=== PATIENT | female | born 1995 ===

== ENCOUNTER 2017-04-29 21:58 | Inpatient (IN) ==
[2017-04-29] MEDS ORDERED: FAMOTIDINE 20 MG/2 ML VIAL IV ONE (22:21)
[2017-04-29] MEDS ORDERED: ceFAZolin 2,000 MG in PREMIX 1 EACH IV ONE (22:21)
[2017-04-29] MEDS ORDERED: CITRIC ACID/SODIUM CITRATE 30 ML UDCUP PO ONE (22:21)
[2017-04-29] MEDS ORDERED: OXYTOCIN/LR 20 UNIT/1,000 ML BAG IV PRN (22:24)
[2017-04-29] MEDS: LACTATED RINGERS 1,000 ML IV SCH (22:30)
[2017-04-29 23:00] LABS: Basophils % 0.2 % (0.0-0.8); Eosinophils % 0.2 % (0.00-10.9); Hematocrit 34.2 VOL% (35.7-47.0); Hemoglobin 11.4 GM/DL (12.0-16.0); Immature Granulocytes % 0.6 %; Immature Granulocytes Absolute 0.08 #; Lymphocytes # 2.9 10*3/uL (1.4-4.0); Lymphocytes % 22.5 % (21.3-54.2); Mean Corpuscular HGB Conc 33.3 GM/DL (32-36); Mean Corpuscular Hemoglobin 29 PG (27-34); Mean Corpuscular Volume 87.7 FL (87-102); Mean Platelet Volume 9.9 FL (9.6-12.0); Monocytes # 0.8 10*3/uL (0.11-0.8); Monocytes % 6.5 % (1.7-12.7); Neutrophils # 8.9 10*3/uL (1.4-7.4); Platelet Count 204 T/CUMM (130-400); Red Cell Distribution Width 14.7 % (9.3-17.3); White Blood Count 12.7 T/CUMM (4-12)
[2017-04-29 23:15] LABS: Apearance,Urine CLEAR (Clear); Bacteria,Urine Occasional /HPF (Few); Bilirubin,Urine Negative (Negative); Blood, Urine Small mg/dL (Negative); Glucose,Urine (UA) Negative (Negative); Ketones,Urine 20 mg/dL (Negative); Mucus,Urine Moderate /LPF (Occasional); Nitrite,Urine Negative (Negative); Protein,Urine 30 MG/DL; RBC,Urine 37 /HPF (0-4); Squamous Epithelial Cell,Urine Occasional /HPF (0-10); Urine Color Yellow (Yellow); Urine Specific Gravity 1.016 (1.001-1.035); Urine Urobilinogen < 2.0 EU/DL (0.2-1.0); WBC,Urine 2 /HPF (0-6)
[2017-04-29 23:18] LABS: INR 0.9; PT Patient Result 9.7 SECS; Partial Thromboplastin Time 26.7 SECS (0-40)
[2017-04-29 23:26] LABS: Albumin 2.7 G/DL (3.4-5.0); Bilirubin,Total 0.5 MG/DL (0.2-1.0); Calcium 8.5 MG/DL (8.5-10.1); Potassium 3.9 MMOL/L (3.5-5.1); Total Protein 6.5 G/DL (6.4-8.3)
[2017-04-30] MEDS ORDERED: ONDANSETRON 4 MG/2 ML VIAL IV PRN (00:29)
[2017-04-30] MEDS ORDERED: SIMETHICONE CHEW 80 MG TABLET PO PRN (00:29)
[2017-04-30] MEDS ORDERED: ACETAMINOPHEN 325 MG TABLET PO PRN (00:29)
[2017-04-30] MEDS ORDERED: RHO(D) IMMUNE GLOBULIN 300 MCG SYRINGE IM ONE (00:29)
[2017-04-30] MEDS ORDERED: OXYTOCIN/LR 20 UNIT/1,000 ML BAG IV ONE (00:29)
[2017-04-30] MEDS ORDERED: MAGNESIUM HYDROXIDE SUSP 30 ML UDCUP PO PRN (00:29)
[2017-04-30] MEDS ORDERED: fentaNYL 100 MCG/2 ML VIAL ONE (00:55)
[2017-04-30] MEDS ORDERED: PROPOFOL 200 MG/20 ML VIAL IV ONE (00:55)
[2017-04-30] MEDS ORDERED: LIDOCAINE MPF 2% /EPI 20 ML VIAL ONE (00:55)
[2017-04-30] MEDS ORDERED: MIDAZOLAM 2 MG/2 ML VIAL ONE (00:55)
[2017-04-30] MEDS ORDERED: MORPHINE 10 MG/10 ML VIAL ONE (00:55)
[2017-04-30] MEDS: MAGNESIUM SULF DRIP 40 GM/1,000 ML ML IV SCH ×2 (01:35→18:16)
[2017-04-30] MEDS ORDERED: HYDROmorphone 2 MG/1 ML VIAL IV PRN (03:10)
[2017-04-30] MEDS ORDERED: diphenhydrAMINE 50 MG/1 ML VIAL IV PRN (03:56)
[2017-04-30] MEDS ORDERED: ceFAZolin 1,000 MG in SYRINGE 1 EACH IV SCH ×2 (07:45→23:00)
[2017-04-30] MEDS: LACTATED RINGERS 1,000 ML IV SCH ×2 (13:42→13:54)
[2017-04-30] MEDS ORDERED: SODIUM CHLORIDE 0.9% 100 ML IV ONE (13:45)
[2017-04-30] MEDS: DOCUSATE SODIUM 100 MG CAPSULE PO SCH ×2 (13:55→22:35)
[2017-04-30] MEDS: MULTIVITAMIN (PRENATAL) TABLET PO SCH (13:55)
[2017-05-01 06:21] LABS: Basophils % 0.2 % (0.0-0.8); Eosinophils # 0.1 10*3/uL (0.0-0.87); Eosinophils % 0.5 % (0.00-10.9); Hematocrit 32.3 VOL% (35.7-47.0); Hemoglobin 10.6 GM/DL (12.0-16.0); Immature Granulocytes % 0.5 %; Immature Granulocytes Absolute 0.05 #; Lymphocytes # 2.6 10*3/uL (1.4-4.0); Lymphocytes % 24.3 % (21.3-54.2); Mean Corpuscular HGB Conc 32.8 GM/DL (32-36); Mean Corpuscular Hemoglobin 29 PG (27-34); Mean Corpuscular Volume 89.7 FL (87-102); Mean Platelet Volume 9.9 FL (9.6-12.0); Monocytes # 0.8 10*3/uL (0.11-0.8); Monocytes % 7.7 % (1.7-12.7); Neutrophils # 7.2 10*3/uL (1.4-7.4); Neutrophils % 66.8 % (38.7-73.9); Platelet Count 178 T/CUMM (130-400); Red Cell Distribution Width 14.7 % (9.3-17.3); White Blood Count 10.8 T/CUMM (4-12)
[2017-05-01] MEDS: DOCUSATE SODIUM 100 MG CAPSULE PO SCH ×2 (08:36→21:40)
[2017-05-01] MEDS: MULTIVITAMIN (PRENATAL) TABLET PO SCH (08:36)
[2017-05-01] MEDS: IBUPROFEN 800 MG TABLET PO PRN (21:39)
[2017-05-02] MEDS: DOCUSATE SODIUM 100 MG CAPSULE PO SCH (08:51)
[2017-05-02] MEDS: MULTIVITAMIN (PRENATAL) TABLET PO SCH (08:51)
[2017-05-02] MEDS: IBUPROFEN 800 MG TABLET PO PRN (08:53)
[2017-05-02] MEDS ORDERED: INFLUENZA VIRUS VACCINE 0.5 ML SYRINGE IM ONE (09:51)
[2017-05-02] MEDS ORDERED: DIPH/TET/ACEL PERT BOOSTER VACCINE 0.5 ML VIAL IM ONE (09:52)
[2017-05-02 11:34] VITALS: BP 143/89
== END 2017-05-02 13:25 | disposition home or self-care (01) | DRG 540 ==
LOC: N.LDOUT 21:58 → N.LD 22:01 → N.OB 05-01 01:49
PROVIDERS: ADMIT Obstetrics & Gynecology; ATTEND Obstetrics & Gynecology
PROC: LDCSECT (ICD-10-PCS; 2017-04-29 23:30)

== ENCOUNTER 2020-10-07 22:33 | Inpatient (IN) ==
[2020-10-08 01:30] LABS: Albumin 2.3 G/DL (3.4-5.0); Calcium 7.8 MG/DL (8.5-10.1); Osmolality,Calculated 274.7 MOS/KG (273-304); Potassium 3.7 MMOL/L (3.5-5.1); Total Protein 7.4 G/DL (6.4-8.2)
[2020-10-08 01:37] LABS: Basophils % 0.4 % (0.0-0.8); Eosinophils % 0.2 % (0.00-10.9); Hematocrit 32.6 VOL% (35.7-47.0); Hemoglobin 9.4 GM/DL (12.0-16.0); Immature Granulocytes % 0.6 %; Immature Granulocytes Absolute 0.03 #; Lymphocytes # 1.6 10*3/uL (1.4-4.0); Lymphocytes % 34.1 % (21.3-54.2); Mean Corpuscular HGB Conc 28.8 GM/DL (32-36); Mean Corpuscular Volume 94.2 FL (87-102); Mean Platelet Volume 9.7 FL (9.6-12.0); Monocytes % 8.6 % (1.7-12.7); NRBC # 0.02 10*3/uL; Neutrophils % 56.1 % (38.7-73.9); Platelet Count 272 T/CUMM (130-400); Red Blood Count 3.46 MC/CUMM (3.8-5.5); Red Cell Distribution Width 26.8 % (9.3-17.3); White Blood Count 4.6 T/CUMM (4-12)
[2020-10-08 01:56] LABS: INR 1.1; PT Patient Result 12.4 SECS (10.5-12.0)
[2020-10-08] MEDS ORDERED: LACTULOSE 20 GM/30 ML UDCUP PO STA (03:43)
[2020-10-08] MEDS ORDERED: diphenhydrAMINE CAP 25 MG CAPSULE PO PRN (04:09)
[2020-10-08] MEDS ORDERED: MORPHINE 2 MG/1 ML SYRINGE IV PRN (04:09)
[2020-10-08] MEDS ORDERED: GLUCAGON 1 MG VIAL IM PRN (04:09)
[2020-10-08] MEDS ORDERED: ONDANSETRON 4 MG/2 ML VIAL IV PRN (04:09)
[2020-10-08] MEDS ORDERED: ZALEPLON 5 MG CAPSULE PO PRN (04:09)
[2020-10-08] MEDS ORDERED: ALUMINUM/MAGNES/SIMETH MAX STR 30 ML UDCUP PO PRN (04:09)
[2020-10-08] MEDS ORDERED: CALCIUM CARBONATE CHEW 500 MG TABLET PO PRN (04:09)
[2020-10-08] MEDS ORDERED: DOCUSATE SODIUM 100 MG CAPSULE PO PRN (04:09)
[2020-10-08] MEDS ORDERED: guaiFENesin/DM ER 600-30 MG TABLET PO PRN (04:09)
[2020-10-08] MEDS ORDERED: hydrALAZINE 20 MG/1 ML VIAL IV PRN (04:09)
[2020-10-08] MEDS ORDERED: ACETAMINOPHEN 325 MG TABLET PO PRN (04:09)
[2020-10-08] MEDS ORDERED: DEXTROSE 50% 25 GM/50 ML VIAL IV PRN (04:09)
[2020-10-08] MEDS ORDERED: NICOTINE 21 MG/24 HR PATCH TRANSDERM PRN (04:09)
[2020-10-08] MEDS: ENOXAPARIN 40 MG/0.4 ML SYRINGE SUBCUT SCH (04:46)
[2020-10-08] MEDS: LEVOFLOXACIN INJ 750 MG/150 ML PREMIX IV SCH (07:31)
[2020-10-08] MEDS ORDERED: FUROSEMIDE 100 MG/10 ML VIAL IV SCH (08:00)
[2020-10-08] MEDS: carvediloL 3.125 MG TABLET PO SCH ×2 (09:12→21:39)
[2020-10-08] MEDS: PANTOPRAZOLE 40 MG TABLET PO SCH (09:12)
[2020-10-08] MEDS: FUROSEMIDE 40 MG/4 ML VIAL IV SCH ×2 (09:13→16:16)
[2020-10-08] MEDS: VALSARTAN 80 MG TABLET PO SCH (11:56)
[2020-10-08] MEDS ORDERED: LORazepam 2 MG/1 ML VIAL IV PRN (17:01)
[2020-10-08] MEDS ORDERED: DICYCLOMINE 10 MG CAPSULE PO PRN (17:01)
[2020-10-08] MEDS ORDERED: HydrOXYzine PAMOATE 25 MG CAPSULE PO PRN (17:10)
[2020-10-08] MEDS: chlordiazePOXIDE 25 MG CAPSULE PO SCH (17:38)
[2020-10-08 18:06] LABS: Folate 4.76 NG/ML (5.38-24.0)
[2020-10-08] MEDS: SPIRONOLACTONE 25 MG TABLET PO SCH (21:39)
[2020-10-08] MEDS: LACTULOSE 20 GM/30 ML UDCUP PO SCH (21:39)
[2020-10-08] MEDS: THIAMINE 100 MG TABLET PO SCH (21:39)
[2020-10-09] MEDS: chlordiazePOXIDE 25 MG CAPSULE PO SCH ×5 (00:13→17:48)
[2020-10-09 05:23] LABS: Basophils % 0.4 % (0.0-0.8); Eosinophils % 0.2 % (0.00-10.9); Hemoglobin 9.5 GM/DL (12.0-16.0); Immature Granulocytes % 0.4 %; Immature Granulocytes Absolute 0.02 #; Lymphocytes # 1.2 10*3/uL (1.4-4.0); Lymphocytes % 23.5 % (21.3-54.2); Mean Corpuscular HGB Conc 29.7 GM/DL (32-36); Mean Corpuscular Volume 91.7 FL (87-102); Mean Platelet Volume 9.1 FL (9.6-12.0); Monocytes % 7.3 % (1.7-12.7); Neutrophils % 68.2 % (38.7-73.9); Platelet Count 246 T/CUMM (130-400); Red Blood Count 3.49 MC/CUMM (3.8-5.5); Red Cell Distribution Width 26.9 % (9.3-17.3); White Blood Count 4.9 T/CUMM (4-12)
[2020-10-09] MEDS: LEVOFLOXACIN INJ 750 MG/150 ML PREMIX IV SCH (05:45)
[2020-10-09] MEDS: ENOXAPARIN 40 MG/0.4 ML SYRINGE SUBCUT SCH (05:45)
[2020-10-09 05:49] LABS: Calcium 7.2 MG/DL (8.5-10.1); Osmolality,Calculated 272.8 MOS/KG (273-304); Potassium 3.5 MMOL/L (3.5-5.1)
[2020-10-09 05:52] LABS: Albumin 1.7 G/DL (3.4-5.0); Bilirubin,Direct 1.07 MG/DL (0.0-0.20); Bilirubin,Indirect 0.5 MG/DL (0.0-1.0); Bilirubin,Total 1.6 MG/DL (0.20-1.00); Total Protein 5.7 G/DL (6.4-8.2)
[2020-10-09 05:55] LABS: Hypochromasia 1+; Platelet Estimate Adequate
[2020-10-09 06:32] LABS: Hepatitis B Core IgM Quant 0.08 Index; Hepatitis B Surface Ag Quant < 0.10 Index; Hepatitis B Surface Ag Result Non-Reactive (NonReactive); Hepatitis C Virus Ab Quant 0.12 Index; Hepatitis C Virus Ab Result Non-Reactive (NonReactive)
[2020-10-09] MEDS ORDERED: TISSUE ADHESIVE 1 EACH APPLICATOR TOP ONE (08:54)
[2020-10-09] MEDS: PANTOPRAZOLE 40 MG TABLET PO SCH (09:44)
[2020-10-09] MEDS: THIAMINE 100 MG TABLET PO SCH ×2 (09:44→20:40)
[2020-10-09] MEDS: SPIRONOLACTONE 25 MG TABLET PO SCH ×2 (09:44→20:40)
[2020-10-09] MEDS: LACTULOSE 20 GM/30 ML UDCUP PO SCH ×3 (09:44→20:39)
[2020-10-09] MEDS: FOLIC ACID 1 MG TABLET PO SCH (09:45)
[2020-10-09] MEDS: FUROSEMIDE 40 MG/4 ML VIAL IV SCH ×2 (09:45→15:17)
[2020-10-09] MEDS: carvediloL 3.125 MG TABLET PO SCH ×2 (09:45→20:40)
[2020-10-09] MEDS: VALSARTAN 80 MG TABLET PO SCH (09:45)
[2020-10-09 10:54] LABS: Total Protein,Peritoneal Fluid 3.6 G/DL
[2020-10-09 11:26] LABS: Neutrophils,Peritoneal Fluid 48 %
[2020-10-09 11:30] LABS: RBC,Peritoneal Fluid 193 T/CUMM
[2020-10-09] MEDS: SILVER SULFADIAZINE 1% CREAM 25 GM TUBE TOP SCH (17:20)
[2020-10-10] MEDS: chlordiazePOXIDE 25 MG CAPSULE PO SCH ×2 (01:19→10:23)
[2020-10-10] MEDS: ENOXAPARIN 40 MG/0.4 ML SYRINGE SUBCUT SCH (04:13)
[2020-10-10] MEDS: LEVOFLOXACIN INJ 750 MG/150 ML PREMIX IV SCH (05:06)
[2020-10-10] MEDS: FUROSEMIDE 40 MG/4 ML VIAL IV SCH ×2 (07:16→17:13)
[2020-10-10 07:20] LABS: Albumin 1.5 G/DL (3.4-5.0); Bilirubin,Total 1.2 MG/DL (0.20-1.00); Calcium 6.9 MG/DL (8.5-10.1); Potassium 3.2 MMOL/L (3.5-5.1); Total Protein 5.1 G/DL (6.4-8.2)
[2020-10-10 08:26] LABS: Hematocrit 32.3 VOL% (35.7-47.0)
[2020-10-10 08:27] LABS: Hemoglobin 9.5 GM/DL (12.0-16.0)
[2020-10-10 09:00] LABS: % Iron Saturation 24.5 % (18-50); Ferritin 47.5 ng/ml (8-252); Thyroid Stimulating Hormone 1.1 uIU/ml (0.358-3.74)
[2020-10-10 09:01] LABS: Folate 6.1 NG/ML (5.38-24.0)
[2020-10-10] MEDS: PANTOPRAZOLE 40 MG TABLET PO SCH (09:23)
[2020-10-10] MEDS: FOLIC ACID 1 MG TABLET PO SCH (09:23)
[2020-10-10] MEDS: carvediloL 3.125 MG TABLET PO SCH (09:23)
[2020-10-10] MEDS: THIAMINE 100 MG TABLET PO SCH (09:23)
[2020-10-10] MEDS: POTASSIUM CHLORIDE 20 MEQ TABLET PO PRN ×2 (09:24→13:32)
[2020-10-10] MEDS: SPIRONOLACTONE 25 MG TABLET PO SCH (09:24)
[2020-10-10] MEDS: LACTULOSE 20 GM/30 ML UDCUP PO SCH ×2 (09:24→10:16)
[2020-10-10] MEDS: VALSARTAN 80 MG TABLET PO SCH (09:24)
[2020-10-10] MEDS ORDERED: LACTULOSE 20 GM/30 ML UDCUP PO PRN (10:58)
[2020-10-10 16:44] VITALS: BP 94/52
[2020-10-10] MEDS: SILVER SULFADIAZINE 1% CREAM 25 GM TUBE TOP SCH (17:13)
== END 2020-10-10 17:30 | disposition home or self-care (01) | DRG 194 ==
LOC: N.ED 22:33 → SUATTDRO 10-08 03:46 → N.EDINP 10-08 03:46 → N.3E 10-08 05:19
PROVIDERS: ADMIT Phlebology; ATTEND Internal Medicine

== ENCOUNTER 2020-11-09 01:00 | Inpatient (IN) ==
[2020-11-09] MEDS ORDERED: ALBUTEROL/IPRATROPIUM 3 ML NEB RESP TX STA (01:44)
[2020-11-09] MEDS ORDERED: FUROSEMIDE 100 MG/10 ML VIAL IV STA (01:44)
[2020-11-09] MEDS ORDERED: methylPREDNISolone SOD SUC 125 MG/2 ML VIAL IV STA (01:44)
[2020-11-09 01:54] LABS: Basophils % 0.2 % (0.0-0.8); Hematocrit 32.4 VOL% (35.7-47.0); Hemoglobin 9.5 GM/DL (12.0-16.0); Immature Granulocytes % 0.2 %; Immature Granulocytes Absolute 0.01 #; Lymphocytes # 1.7 10*3/uL (1.4-4.0); Lymphocytes % 28.4 % (21.3-54.2); Mean Corpuscular HGB Conc 29.3 GM/DL (32-36); Mean Corpuscular Volume 97.6 FL (87-102); Mean Platelet Volume 8.9 FL (9.6-12.0); Monocytes % 10.3 % (1.7-12.7); Neutrophils % 60.9 % (38.7-73.9); Platelet Count 219 T/CUMM (130-400); Red Blood Count 3.32 MC/CUMM (3.8-5.5); Red Cell Distribution Width 21.5 % (9.3-17.3); White Blood Count 6.1 T/CUMM (4-12)
[2020-11-09 02:00] LABS: INR 1.4; PT Patient Result 15.3 SECS (10.5-12.0)
[2020-11-09 02:24] LABS: Alanine Aminotransferase 10 U/L (13-56); Albumin 2.5 G/DL (3.4-5.0); Alkaline Phosphatase 161 U/L (45-117); Aspartate Amino Transferase 29 U/L (0-37); Blood Urea Nitrogen 14 MG/DL (7-18); Calcium 7.7 MG/DL (8.5-10.1); Carbon Dioxide 22 MMOL/L (21-32); Estimated Glom Filtration Rate 67 ML/MIN; Glucose 115 MG/DL (74-106); Osmolality,Calculated 271.1 MOS/KG (273-304); Potassium 4.1 MMOL/L (3.5-5.1); Sodium 135 MMOL/L (136-145)
[2020-11-09] MEDS ORDERED: ONDANSETRON 4 MG/2 ML VIAL IV PRN (03:31)
[2020-11-09] MEDS ORDERED: GLUCAGON 1 MG VIAL IM PRN (03:31)
[2020-11-09] MEDS ORDERED: DEXTROSE 50% 25 GM/50 ML VIAL IV PRN (03:31)
[2020-11-09] MEDS ORDERED: POTASSIUM CHLORIDE 20 MEQ TABLET PO PRN (03:40)
[2020-11-09] MEDS ORDERED: LORazepam 2 MG/1 ML VIAL IV PRN (03:40)
[2020-11-09 03:51] LABS: Blood, Urine Negative (Negative); Glucose,Urine (UA) Negative (Negative); Hyaline Casts,Urine 126 /LPF (0-3); Ketones,Urine 5 mg/dL (Negative); Mucus,Urine Few /LPF (Occasional); Nitrite,Urine Negative (Negative); Protein,Urine 30 MG/DL; RBC,Urine 1 /HPF (0-4); Squamous Epithelial Cell,Urine Occasional /HPF (0-10); Urine Appearance CLEAR (Clear); Urine Color Amber (Yellow); Urine Specific Gravity 1.023 (1.001-1.035)
[2020-11-09 03:53] LABS: Bilirubin,Urine Small mg/dL (Negative)
[2020-11-09] MEDS ORDERED: MAGNESIUM SULF RIDER 2 GM/50 ML PREMIX IV ONE ×2 (04:00→12:30)
[2020-11-09 04:36] LABS: Barbiturates Screen,Urine Negative (Negative); Benzodiazepines Screen,Urine Positive (Negative); Cannabinoid Screen,Urine Positive (Negative); Opiate Screen,Urine Negative (Negative); Phencyclidine Screen,Urine Negative (Negative)
[2020-11-09] MEDS ORDERED: FUROSEMIDE 40 MG/4 ML VIAL IV SCH (08:00)
[2020-11-09] MEDS ORDERED: SPIRONOLACTONE 25 MG TABLET PO SCH (09:00)
[2020-11-09] MEDS ORDERED: ALBUMIN 25% 12.5 GM/50 ML VIAL IV ONE ×4 (09:03→20:12)
[2020-11-09 11:27] LABS: Hematocrit 30.7 VOL% (35.7-47.0); Hemoglobin 9.2 GM/DL (12.0-16.0); Immature Granulocytes % 0.2 %; Immature Granulocytes Absolute 0.01 #; Lymphocytes # 0.5 10*3/uL (1.4-4.0); Lymphocytes % 12.5 % (21.3-54.2); Mean Corpuscular Volume 96.5 FL (87-102); Mean Platelet Volume 8.8 FL (9.6-12.0); Neutrophils % 84.3 % (38.7-73.9); Platelet Count 163 T/CUMM (130-400); Red Blood Count 3.18 MC/CUMM (3.8-5.5); Red Cell Distribution Width 21.3 % (9.3-17.3)
[2020-11-09 11:46] LABS: Calcium 7.8 MG/DL (8.5-10.1); Osmolality,Calculated 276.7 MOS/KG (273-304); Potassium 4.2 MMOL/L (3.5-5.1)
[2020-11-09] MEDS: carvediloL 3.125 MG TABLET PO SCH ×2 (12:20→20:37)
[2020-11-09] MEDS: THIAMINE 100 MG TABLET PO SCH (12:20)
[2020-11-09] MEDS: PANTOPRAZOLE 40 MG TABLET PO SCH (12:20)
[2020-11-09] MEDS: FOLIC ACID 1 MG TABLET PO SCH (12:20)
[2020-11-09] MEDS: LACTULOSE 20 GM/30 ML UDCUP PO SCH ×2 (12:24→20:33)
[2020-11-09] MEDS ORDERED: LACTATED RINGERS 1,000 ML IV ONE (20:12)
[2020-11-09] MEDS: ENOXAPARIN 40 MG/0.4 ML SYRINGE SUBCUT SCH (20:33)
[2020-11-09] MEDS ORDERED: LACTATED RINGERS 500 ML IV ONE (23:40)
[2020-11-10 05:11] LABS: Basophils % 0.2 % (0.0-0.8); Hematocrit 31.7 VOL% (35.7-47.0); Hemoglobin 9.4 GM/DL (12.0-16.0); Immature Granulocytes % 0.5 %; Immature Granulocytes Absolute 0.03 #; Lymphocytes # 1.2 10*3/uL (1.4-4.0); Lymphocytes % 19.3 % (21.3-54.2); Mean Corpuscular HGB Conc 29.7 GM/DL (32-36); Mean Corpuscular Volume 98.1 FL (87-102); Mean Platelet Volume 9.4 FL (9.6-12.0); Monocytes % 10.5 % (1.7-12.7); Neutrophils % 69.5 % (38.7-73.9); Platelet Count 186 T/CUMM (130-400); Red Blood Count 3.23 MC/CUMM (3.8-5.5); Red Cell Distribution Width 21.2 % (9.3-17.3); White Blood Count 6.1 T/CUMM (4-12)
[2020-11-10 05:34] LABS: Alanine Aminotransferase < 6 U/L (13-56); Albumin 1.7 G/DL (3.4-5.0); Alkaline Phosphatase 102 U/L (45-117); Aspartate Amino Transferase 16 U/L (0-37); Blood Urea Nitrogen 17 MG/DL (7-18); Calcium 7.3 MG/DL (8.5-10.1); Carbon Dioxide 23 MMOL/L (21-32); Estimated Glom Filtration Rate 81 ML/MIN; Glucose 106 MG/DL (74-106); Osmolality,Calculated 274.8 MOS/KG (273-304); Potassium 3.8 MMOL/L (3.5-5.1); Sodium 137 MMOL/L (136-145); Total Protein 4.8 G/DL (6.4-8.2)
[2020-11-10] MEDS: THIAMINE 100 MG TABLET PO SCH (08:37)
[2020-11-10] MEDS: FOLIC ACID 1 MG TABLET PO SCH (08:37)
[2020-11-10] MEDS: PANTOPRAZOLE 40 MG TABLET PO SCH (08:37)
[2020-11-10] MEDS: LACTULOSE 20 GM/30 ML UDCUP PO SCH ×2 (08:37→20:40)
[2020-11-10] MEDS: carvediloL 3.125 MG TABLET PO SCH ×2 (10:29→20:43)
[2020-11-10] MEDS: ENOXAPARIN 40 MG/0.4 ML SYRINGE SUBCUT SCH (20:41)
[2020-11-11 05:41] LABS: Hemoglobin 10.6 GM/DL (12.0-16.0); Monocytes % 9.9 % (1.7-12.7); Red Cell Distribution Width 21.1 % (9.3-17.3)
[2020-11-11 05:47] LABS: Basophils % 0.4 % (0.0-0.8); Hematocrit 35.7 VOL% (35.7-47.0); Immature Granulocytes % 0.4 %; Immature Granulocytes Absolute 0.02 #; Lymphocytes # 1.8 10*3/uL (1.4-4.0); Mean Corpuscular HGB Conc 29.7 GM/DL (32-36); Mean Corpuscular Volume 100.3 FL (87-102); Mean Platelet Volume 9.4 FL (9.6-12.0); Neutrophils % 56.3 % (38.7-73.9); Platelet Count 218 T/CUMM (130-400); Red Blood Count 3.56 MC/CUMM (3.8-5.5); White Blood Count 5.5 T/CUMM (4-12)
[2020-11-11 06:37] LABS: Albumin 1.7 G/DL (3.4-5.0); Bilirubin,Total 0.4 MG/DL (0.20-1.00); Calcium 6.8 MG/DL (8.5-10.1); Osmolality,Calculated 275.7 MOS/KG (273-304); Total Protein 4.6 G/DL (6.4-8.2)
[2020-11-11] MEDS ORDERED: MAGNESIUM SULF RIDER 2 GM/50 ML PREMIX IV ONE (07:08)
[2020-11-11] MEDS: THIAMINE 100 MG TABLET PO SCH (10:21)
[2020-11-11] MEDS: FOLIC ACID 1 MG TABLET PO SCH (10:21)
[2020-11-11] MEDS: PANTOPRAZOLE 40 MG TABLET PO SCH (10:22)
[2020-11-11] MEDS: LACTULOSE 20 GM/30 ML UDCUP PO SCH ×2 (10:27→20:58)
[2020-11-11] MEDS: carvediloL 3.125 MG TABLET PO SCH ×2 (10:27→20:57)
[2020-11-11] MEDS ORDERED: POLYETHYLENE GLYCOL POWDER 17 GM PACK PO SCH (10:30)
[2020-11-11] MEDS: ENOXAPARIN 40 MG/0.4 ML SYRINGE SUBCUT SCH (20:57)
[2020-11-12 06:12] LABS: Albumin 1.6 G/DL (3.4-5.0); Bilirubin,Total 0.4 MG/DL (0.20-1.00); Calcium 6.9 MG/DL (8.5-10.1); Osmolality,Calculated 279.4 MOS/KG (273-304); Potassium 3.6 MMOL/L (3.5-5.1); Total Protein 4.4 G/DL (6.4-8.2)
[2020-11-12 06:44] LABS: Basophils % 0.5 % (0.0-0.8); Hematocrit 34.3 VOL% (35.7-47.0); Hemoglobin 10.3 GM/DL (12.0-16.0); Immature Granulocytes % 0.2 %; Immature Granulocytes Absolute 0.01 #; Lymphocytes # 1.4 10*3/uL (1.4-4.0); Mean Corpuscular Volume 98.3 FL (87-102); Monocytes % 9.5 % (1.7-12.7); Neutrophils % 55.8 % (38.7-73.9); Platelet Count 211 T/CUMM (130-400); Red Blood Count 3.49 MC/CUMM (3.8-5.5); White Blood Count 4.1 T/CUMM (4-12)
[2020-11-12] MEDS: MIDODRINE 2.5 MG TABLET PO SCH ×2 (09:42→21:37)
[2020-11-12] MEDS: POLYETHYLENE GLYCOL POWDER 17 GM PACK PO SCH (09:42)
[2020-11-12] MEDS: THIAMINE 100 MG TABLET PO SCH (09:42)
[2020-11-12] MEDS: FOLIC ACID 1 MG TABLET PO SCH (09:42)
[2020-11-12] MEDS: PANTOPRAZOLE 40 MG TABLET PO SCH (09:43)
[2020-11-12] MEDS: LACTULOSE 20 GM/30 ML UDCUP PO SCH ×2 (09:43→21:37)
[2020-11-12] MEDS: carvediloL 3.125 MG TABLET PO SCH (09:43)
[2020-11-12] MEDS: MAGNESIUM OXIDE 400 MG TABLET PO SCH ×2 (12:37→21:37)
[2020-11-12] MEDS: ENOXAPARIN 40 MG/0.4 ML SYRINGE SUBCUT SCH (21:37)
[2020-11-13 05:19] LABS: Basophils % 0.2 % (0.0-0.8); Hematocrit 34.7 VOL% (35.7-47.0); Hemoglobin 10.4 GM/DL (12.0-16.0); Immature Granulocytes % 0.2 %; Immature Granulocytes Absolute 0.01 #; Lymphocytes # 1.3 10*3/uL (1.4-4.0); Lymphocytes % 27.2 % (21.3-54.2); Mean Corpuscular Volume 98.3 FL (87-102); Mean Platelet Volume 8.7 FL (9.6-12.0); Neutrophils % 64.4 % (38.7-73.9); Platelet Count 204 T/CUMM (130-400); Red Blood Count 3.53 MC/CUMM (3.8-5.5); Red Cell Distribution Width 20.8 % (9.3-17.3); White Blood Count 4.6 T/CUMM (4-12)
[2020-11-13 05:47] LABS: Albumin 1.5 G/DL (3.4-5.0); Bilirubin,Total 0.8 MG/DL (0.20-1.00); Calcium 7.1 MG/DL (8.5-10.1); Osmolality,Calculated 276.4 MOS/KG (273-304); Potassium 4.3 MMOL/L (3.5-5.1); Total Protein 4.6 G/DL (6.4-8.2)
[2020-11-13] MEDS: FOLIC ACID 1 MG TABLET PO SCH (10:07)
[2020-11-13] MEDS: LACTULOSE 20 GM/30 ML UDCUP PO SCH (10:07)
[2020-11-13] MEDS: MAGNESIUM OXIDE 400 MG TABLET PO SCH (10:08)
[2020-11-13] MEDS: PANTOPRAZOLE 40 MG TABLET PO SCH (10:09)
[2020-11-13] MEDS: MIDODRINE 2.5 MG TABLET PO SCH (10:09)
[2020-11-13] MEDS: THIAMINE 100 MG TABLET PO SCH (10:10)
[2020-11-13] MEDS: POLYETHYLENE GLYCOL POWDER 17 GM PACK PO SCH (10:11)
[2020-11-13 12:15] VITALS: BP 112/72
== END 2020-11-13 15:35 | disposition home or self-care (01) | DRG 280 ==
LOC: EDUNIT# → EDBD → N.ED 01:00 → N.EDINP 03:31 → SUATTDRO 03:31 → N.EDINP 05:27 → N.TELES 05:44
PROVIDERS: ADMIT Internal Medicine; ATTEND Internal Medicine

== ENCOUNTER 2021-01-11 18:15 | Inpatient (IN) ==
[2021-01-11 19:21] LABS: Basophils % 0.5 % (0.0-0.8); Hemoglobin 10.4 GM/DL (12.0-16.0); Immature Granulocytes % 0.5 %; Immature Granulocytes Absolute 0.03 #; Lymphocytes # 1.1 10*3/uL (1.4-4.0); Lymphocytes % 17.5 % (21.3-54.2); Mean Corpuscular HGB Conc 28.1 GM/DL (32-36); Mean Corpuscular Volume 94.9 FL (87-102); Mean Platelet Volume 8.7 FL (9.6-12.0); Monocytes % 6.1 % (1.7-12.7); Neutrophils % 75.4 % (38.7-73.9); Platelet Count 295 T/CUMM (130-400); Red Cell Distribution Width 18.5 % (9.3-17.3); White Blood Count 6.4 T/CUMM (4-12)
[2021-01-11 19:40] LABS: Albumin 1.9 G/DL (3.4-5.0); Bilirubin,Total 0.4 MG/DL (0.20-1.00); Calcium 7.6 MG/DL (8.5-10.1); Osmolality,Calculated 272.1 MOS/KG (273-304); Potassium 4.1 MMOL/L (3.5-5.1); Total Protein 6.3 G/DL (6.4-8.2)
[2021-01-11 19:47] LABS: INR 1.1; PT Patient Result 11.7 SECS (10.5-12.0); Partial Thromboplastin Time 26.1 SECS (23.8-32.1)
[2021-01-11 20:08] LABS: Bilirubin,Urine Small mg/dL (Negative); Blood, Urine Negative (Negative); Glucose,Urine (UA) Negative (Negative); Granular Casts,Urine 10 /LPF (0-1); Hyaline Casts,Urine 25 /LPF (0-3); Ketones,Urine 5 mg/dL (Negative); Mucus,Urine Few /LPF (Occasional); Nitrite,Urine Negative (Negative); Protein,Urine 30 MG/DL; RBC,Urine 13 /HPF (0-4); Squamous Epithelial Cell,Urine Occasional /HPF (0-10); Urine Appearance Slightly Hazy (Clear); Urine Color Amber (Yellow); Urine Specific Gravity 1.027 (1.001-1.035)
[2021-01-11] MEDS ORDERED: ACETAMINOPHEN 325 MG TABLET PO PRN (21:12)
[2021-01-11] MEDS ORDERED: MAGNESIUM SULF RIDER 4 GM/100 ML PREMIX IV PRN (21:12)
[2021-01-11] MEDS ORDERED: ONDANSETRON 4 MG/2 ML VIAL IV PRN (21:12)
[2021-01-11] MEDS ORDERED: MAGNESIUM SULF RIDER 2 GM/50 ML PREMIX IV PRN (21:12)
[2021-01-11] MEDS: cefTRIAXone 1,000 MG in SODIUM CHLORIDE 0.9% 100 ML IV SCH (23:08)
[2021-01-11 23:52] LABS: Barbiturates Screen,Urine Negative (Negative); Benzodiazepines Screen,Urine Negative (Negative); Cannabinoid Screen,Urine Positive (Negative); Opiate Screen,Urine Negative (Negative); Phencyclidine Screen,Urine Negative (Negative)
[2021-01-12] MEDS ORDERED: THIAMINE 100 MG TABLET PO SCH (09:00)
[2021-01-12] MEDS ORDERED: SPIRONOLACTONE 25 MG TABLET PO SCH (09:00)
[2021-01-12] MEDS ORDERED: carvediloL 3.125 MG TABLET PO SCH (09:00)
[2021-01-12] MEDS: SPIRONOLACTONE 25 MG TABLET PO SCH ×2 (09:43→20:17)
[2021-01-12] MEDS: FUROSEMIDE 40 MG/4 ML VIAL IV SCH ×2 (09:43→17:21)
[2021-01-12] MEDS: carvediloL 3.125 MG TABLET PO SCH ×2 (09:43→16:20)
[2021-01-12] MEDS: PANTOPRAZOLE 40 MG TABLET PO SCH (09:43)
[2021-01-12 09:49] LABS: Albumin 1.8 G/DL (3.4-5.0); Bilirubin,Total 0.5 MG/DL (0.20-1.00); Calcium 7.8 MG/DL (8.5-10.1); Osmolality,Calculated 271.1 MOS/KG (273-304); Potassium 4.3 MMOL/L (3.5-5.1)
[2021-01-12 10:12] LABS: Basophils % 0.6 % (0.0-0.8); Hematocrit 33.6 VOL% (35.7-47.0); Immature Granulocytes % 0.4 %; Immature Granulocytes Absolute 0.02 #; Mean Corpuscular HGB Conc 28.3 GM/DL (32-36); Mean Corpuscular Volume 95.2 FL (87-102); Mean Platelet Volume 9.3 FL (9.6-12.0); Monocytes % 5.4 % (1.7-12.7); Neutrophils % 73.6 % (38.7-73.9); Platelet Count 272 T/CUMM (130-400); Red Blood Count 3.53 MC/CUMM (3.8-5.5); Red Cell Distribution Width 18.4 % (9.3-17.3)
[2021-01-12 10:13] LABS: Hemoglobin 9.5 GM/DL (12.0-16.0)
[2021-01-12 10:31] LABS: Hypochromasia 1+
[2021-01-12 10:32] LABS: Microcytosis 1+; Ovalocytes Slight; Platelet Estimate Normal
[2021-01-12] MEDS ORDERED: ALBUMIN 25% 12.5 GM/50 ML VIAL IV ONE ×4 (10:57→11:48)
[2021-01-12 12:49] LABS: % Iron Saturation 11.8 % (18-50); Ferritin 27.3 ng/mL (8-252)
[2021-01-12 14:11] LABS: Folate > 24.00 NG/ML (5.38-24.0); Vitamin B12 411 PG/ML (211-911)
[2021-01-12] MEDS: cefTRIAXone 1,000 MG in SODIUM CHLORIDE 0.9% 100 ML IV SCH (23:53)
[2021-01-13 06:02] LABS: Basophils % 0.4 % (0.0-0.8); Hematocrit 31.8 VOL% (35.7-47.0); Hemoglobin 9.6 GM/DL (12.0-16.0); Immature Granulocytes % 0.4 %; Immature Granulocytes Absolute 0.02 #; Lymphocytes # 1.1 10*3/uL (1.4-4.0); Lymphocytes % 21.1 % (21.3-54.2); Mean Corpuscular HGB Conc 30.2 GM/DL (32-36); Mean Corpuscular Volume 91.6 FL (87-102); Mean Platelet Volume 8.9 FL (9.6-12.0); Monocytes % 6.1 % (1.7-12.7); Platelet Count 267 T/CUMM (130-400); Red Blood Count 3.47 MC/CUMM (3.8-5.5); Red Cell Distribution Width 17.9 % (9.3-17.3); White Blood Count 5.3 T/CUMM (4-12)
[2021-01-13 06:19] LABS: Calcium 7.6 MG/DL (8.5-10.1); Osmolality,Calculated 266.7 MOS/KG (273-304); Potassium 4.8 MMOL/L (3.5-5.1)
[2021-01-13] MEDS: carvediloL 3.125 MG TABLET PO SCH ×2 (08:48→16:03)
[2021-01-13] MEDS: SPIRONOLACTONE 25 MG TABLET PO SCH ×2 (08:48→20:42)
[2021-01-13] MEDS: PANTOPRAZOLE 40 MG TABLET PO SCH (08:48)
[2021-01-13] MEDS: ENOXAPARIN 40 MG/0.4 ML SYRINGE SUBCUT SCH (08:48)
[2021-01-13] MEDS: FUROSEMIDE 40 MG/4 ML VIAL IV SCH ×2 (08:49→16:03)
[2021-01-13] MEDS: cefTRIAXone 1,000 MG in SODIUM CHLORIDE 0.9% 100 ML IV SCH (22:58)
[2021-01-14] MEDS: carvediloL 3.125 MG TABLET PO SCH ×2 (08:55→16:04)
[2021-01-14] MEDS: PANTOPRAZOLE 40 MG TABLET PO SCH (08:55)
[2021-01-14] MEDS: SPIRONOLACTONE 25 MG TABLET PO SCH ×2 (08:55→20:42)
[2021-01-14] MEDS: FUROSEMIDE 40 MG/4 ML VIAL IV SCH ×2 (08:56→16:05)
[2021-01-14] MEDS: ENOXAPARIN 40 MG/0.4 ML SYRINGE SUBCUT SCH (08:56)
[2021-01-14] MEDS: cefTRIAXone 1,000 MG in SODIUM CHLORIDE 0.9% 100 ML IV SCH (22:42)
[2021-01-15 05:23] LABS: Basophils % 0.2 % (0.0-0.8); Hematocrit 33.3 VOL% (35.7-47.0); Hemoglobin 9.8 GM/DL (12.0-16.0); Immature Granulocytes % 0.4 %; Immature Granulocytes Absolute 0.02 #; Lymphocytes # 1.2 10*3/uL (1.4-4.0); Mean Corpuscular HGB Conc 29.4 GM/DL (32-36); Mean Platelet Volume 9.2 FL (9.6-12.0); Monocytes % 7.6 % (1.7-12.7); Neutrophils % 68.8 % (38.7-73.9); Platelet Count 291 T/CUMM (130-400); Red Blood Count 3.58 MC/CUMM (3.8-5.5); Red Cell Distribution Width 17.9 % (9.3-17.3); White Blood Count 5.4 T/CUMM (4-12)
[2021-01-15 05:42] LABS: Calcium 7.1 MG/DL (8.5-10.1); Osmolality,Calculated 273.1 MOS/KG (273-304); Potassium 3.9 MMOL/L (3.5-5.1)
[2021-01-15] MEDS: carvediloL 3.125 MG TABLET PO SCH (09:02)
[2021-01-15] MEDS: FUROSEMIDE 40 MG/4 ML VIAL IV SCH (09:02)
[2021-01-15] MEDS: SPIRONOLACTONE 25 MG TABLET PO SCH (09:02)
[2021-01-15] MEDS: ENOXAPARIN 40 MG/0.4 ML SYRINGE SUBCUT SCH (09:02)
[2021-01-15] MEDS: PANTOPRAZOLE 40 MG TABLET PO SCH (09:02)
[2021-01-15 12:48] VITALS: BP 102/72
[2021-01-15] MEDS: cefTRIAXone 1,000 MG in SODIUM CHLORIDE 0.9% 100 ML IV SCH (13:38)
== END 2021-01-15 16:25 | disposition home health service (06) | DRG 194 ==
LOC: EDUNIT# → EDBD → N.ED 18:15 → SUATTDRO 21:12 → N.EDINP 21:12 → N.3E 23:28
PROVIDERS: ADMIT Internal Medicine; ATTEND Internal Medicine